=== PATIENT | female | born 1960 | race Caucasian/White ===

== ENCOUNTER 2017-04-25 15:23 | Emergency (ER) | payer MEDICAID ==
[2017-04-25] MEDS ORDERED: Morphine 2 MG/ML Syringe IM ONE (15:30)
--- NOTE | 2017-04-25 15:30 | EDM.PDOC ---
ED HPI GENERAL MEDICAL PROBLEM - General Chief Complaint: Upper Extremity Injury/Pain Stated Complaint: Fall; LUE pain Time Seen by Provider: 04/25/17 15:28 Source of Information: Reports: Patient, Family, RN, RN Notes Reviewed History Limitations: Reports: No Limitations - History of Present Illness INITIAL COMMENTS - FREE TEXT/NARRATIVE: Patient presents to the ED at [facility] complaining of LUE pain after she slipped and fell on the ice walking across the street. Patient states she exited a cafe and started walking across the street to get to her car when she fell. Patient complains of severe LUE pain. She has a history of a left wrist fracture. No previous LUE surgeries. She denies any numbness, tingling, or paresthesia to the LUE. She is reluctant to move the LUE do to pain, so exam is limited. Patient denies any head injury/trauma. No LOC. 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 Left Arm Pain Score (Numeric/FACES): 10 - Related Data Allergies Allergy/AdvReac Type Severity Reaction Status Date / Time No Known Allergies Allergy Verified 04/25/17 15:45 Home Meds: Home Meds Lisinopril 10 mg PO DAILY 06/14/16 [History] Omeprazole Magnesium [Prilosec Otc] 20 mg PO 06/14/16 [History] amLODIPine [Norvasc] 5 mg PO DAILY 06/14/16 [History] atorvaSTATin [Lipitor] 20 mg PO BEDTIME 06/14/16 [History] Past Medical History HEENT History: Reports: Glaucoma Genitourinary History: Reports: UTI, Recurrent 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 Social & Family History - Family History Family Medical History: Noncontributory - Tobacco Use Smoking Status *Q: Current Every Day Smoker Years of Tobacco use: 41 Packs/Tins Daily: 1 Second Hand Smoke Exposure: Yes - Caffeine Use Caffeine Use: Reports: Coffee - Recreational Drug Use Recreational Drug Use: No Review of Systems - Review of Systems Review Of Systems: See Below Constitutional: Denies: Chills, Fever, Weakness Respiratory: Denies: Shortness of Breath, Cough Cardiovascular: Denies: Chest Pain, Palpitations Musculoskeletal: Reports: Arm Pain, Joint Pain, Muscle Pain Skin: Reports: No Symptoms Neurological: Reports: No Symptoms. Denies: Numbness, Paresthesia, Tingling ED EXAM, GENERAL - Physical Exam Exam: See Below Exam Limited By: No Limitations General Appearance: Alert, Moderate Distress (due to pain) Head: Atraumatic, Normocephalic Neck: Supple Respiratory/Chest: No Respiratory Distress, Lungs Clear, Normal Breath Sounds Cardiovascular: Normal Peripheral Pulses, Regular Rate, Rhythm Peripheral Pulses: 2+: Radial (L), Radial (R) Extremities: Normal Capillary Refill, Limited Range of Motion (due to pain; unable to fully assess injury) Neurological: Alert, Oriented Skin Exam: Warm, Dry, Intact, Normal Color Course - Vital Signs Last Recorded V/S: Last Vital Signs Temp 35.8 C 04/25/17 15:25 Pulse 78 04/25/17 15:25 Resp 20 04/25/17 15:25 BP 162/93 H 04/25/17 15:25 Pulse Ox 96 04/25/17 15:25 - Orders/Labs/Meds Orders: Active Orders 24 hr Category Date Time Status Forearm 2V Lt [CR] Stat Exams 04/25/17 15:48 Taken Humerus Lt [CR] Stat Exams 04/25/17 15:48 Taken Sodium Chloride 0.9% [Saline Flush] Med 04/25/17 16:17 Active 10 ml FLUSH ASDIRECTED PRN Peripheral IV Insertion Adult [OM.PC] Routine Oth 04/25/17 16:17 Ordered Medication Orders Sodium Chloride (Saline Flush) 10 ml FLUSH ASDIRECTED PRN PRN Reason: Keep Vein Open Meds: Medications Generic Name Dose Route Start Last Admin Trade Name Freq PRN Reason Stop Dose Admin Sodium Chloride 10 ml 04/25/17 16:17 Saline Flush FLUSH ASDIRECTED PRN Keep Vein Open Discontinued Medications Generic Name Dose Route Start Last Admin Trade Name Freq PRN Reason Stop Dose Admin Hydromorphone HCl 1 mg 04/25/17 16:18 04/25/17 16:39 Dilaudid IVPUSH 04/25/17 16:19 1 mg ONETIME ONE Administration Hydromorphone HCl 1 mg 04/25/17 16:51 04/25/17 17:01 Dilaudid IVPUSH 04/25/17 16:52 1 mg ONETIME ONE Administration Sodium Chloride 1,000 mls @ 999 mls/hr 04/25/17 16:18 04/25/17 16:35 Normal Saline IV 04/25/17 17:18 999 mls/hr ONETIME ONE Administration Morphine Sulfate 2 mg 04/25/17 15:30 04/25/17 15:37 Morphine IM 04/25/17 15:31 2 mg ONETIME ONE Administration Ondansetron HCl 4 mg 04/25/17 16:18 04/25/17 16:37 Zofran IVPUSH 04/25/17 16:19 4 mg ONETIME ONE Administration - Radiology Interpretation Free Text/Narrative:: Xray Humerus, Left: Acute comminuted and impacted fracture of the proximal humerus Xray Forearm, Left: Unremarkable examination of the forearm See scanned reports in EMR Departure - Departure Time of Disposition: 17:34 Disposition: DC/Tfer to [facility] 02 Condition: Good Clinical Impression: Arm pain, left Humerus surgical neck fracture Qualifiers: Encounter type: initial encounter Fracture type: closed Fracture morphology: 2- part Fracture alignment: displaced Laterality: left Qualified Code(s): S42.222A - 2-part displaced fracture of surgical neck of left humerus, initial encounter for closed fracture Fall from slipping on ice Qualifiers: Encounter type: initial encounter Qualified Code(s): W00.9XXA - Unspecified fall due to ice and snow, initial encounter - Discharge Information Forms: Interfacility Transfer [facility] ED Communication - ED Communication Date/Time Date: 04/25/17 Time Called: 16:57 - Discussed Case With (1) Discussed Case With (1): Outpatient Provider Person/s Notified (1): Moreno Medina - Conversation Summary Outpatient Provider Agreed to Follow-up on this Patient: Yes Patient Aware of Amendments fo Care Plan: Yes Summary Comment: Case discussed with Dr. Moreno Medina. Recommend patient being transferred to [facility] for surgery either tomorrow or next. Report given. All questions answered. - Problem List Review Problem List Initiated/Reviewed/Updated: Yes - My Orders Last 24 Hours: My Active Orders 04/25/17 15:48 Forearm 2V Lt [CR] Stat Humerus Lt [CR] Stat 04/25/17 16:17 Sodium Chloride 0.9% [Saline Flush] 10 ml FLUSH ASDIRECTED PRN Peripheral IV Insertion Adult [OM.PC] Routine - Assessment/Plan Last 24 Hours: My Active Orders 04/25/17 15:48 Forearm 2V Lt [CR] Stat Humerus Lt [CR] Stat 04/25/17 16:17 Sodium Chloride 0.9% [Saline Flush] 10 ml FLUSH ASDIRECTED PRN Peripheral IV Insertion Adult [OM.PC] Routine Plan: Case discussed with Dr. Moreno Medina. Patient will be transferred to [facility] for surgery either tomorrow or next. Patient will be transferred via ALS ground. Patient agrees with POC and wishes to proceed.
[2017-04-25 15:58] VITALS: BP 162/93
[2017-04-25] MEDS ORDERED: Sodium Chloride 0.9% 10 ML Syringe FLUSH PRN (16:17)
[2017-04-25] MEDS ORDERED: HYDROmorphone 1 MG/ML Syringe IVPUSH ONE ×2 (16:18→16:51)
[2017-04-25] MEDS ORDERED: Sodium Chloride 0.9% 1,000 ML IV ONE (16:18)
[2017-04-25] MEDS ORDERED: Ondansetron 4 MG/2 ML SDV IVPUSH ONE (16:18)
[2017-04-25] MEDS ORDERED: Sodium Chloride 0.9% 250 ML IV ONE (17:42)
== END 2017-04-25 18:10 | disposition short-term general hospital (02) ==
LOC: VM.ED 15:23
DX: S42.222A 2-part displaced fracture of surgical neck of left humerus, initial encounter for closed fracture (principal); W00.9XXA Unspecified fall due to ice and snow, initial encounter; F17.210 Nicotine dependence, cigarettes, uncomplicated
CPT/HCPCS: 73060; 73090; 96361; 96372; 96374; 96375; 99285; J1170; J2270; J2405; J7030